=== PATIENT | female | born 1945 | race Caucasian/White ===

== ENCOUNTER 2017-08-24 12:22 | Outpatient (CLI) | payer OTHER | END 2017-08-24 12:33 | disposition home or self-care (01) | LOC: MAMO-SONO 12:22 | DX: Z12.31 Encounter for screening mammogram for malignant neoplasm of breast (principal); Z87.898 Personal history of other specified conditions ==

== ENCOUNTER → 2019-01-14 09:29 | Outpatient (CLI) | payer OTHER | END | disposition home or self-care (01) | LOC: LAB 09:29 | DX: M54.5 Low back pain (principal); Z01.810 Encounter for preprocedural cardiovascular examination; I10 Essential (primary) hypertension; E78.89 Other lipoprotein metabolism disorders; Z12.11 Encounter for screening for malignant neoplasm of colon; Z13.820 Encounter for screening for osteoporosis; Z12.31 Encounter for screening mammogram for malignant neoplasm of breast; E04.1 Nontoxic single thyroid nodule ==

== ENCOUNTER 2019-01-14 11:23 | Outpatient (CLI) | payer OTHER | END 2019-01-14 11:36 | disposition home or self-care (01) | LOC: MAMO-SONO 11:23 | DX: M54.5 Low back pain (principal); I10 Essential (primary) hypertension; Z01.810 Encounter for preprocedural cardiovascular examination; E78.49 Other hyperlipidemia; Z12.11 Encounter for screening for malignant neoplasm of colon; Z13.820 Encounter for screening for osteoporosis; Z12.31 Encounter for screening mammogram for malignant neoplasm of breast ==

== ENCOUNTER 2019-01-16 10:49 | Outpatient (CLI) | payer OTHER | END 2019-01-16 10:52 | disposition home or self-care (01) | LOC: NUCLEAR 10:49 | DX: M81.0 Age-related osteoporosis without current pathological fracture (principal) ==

== ENCOUNTER 2019-01-24 11:12 | Outpatient (CLI) | payer OTHER | END 2019-01-24 17:13 | disposition home or self-care (01) | LOC: TOM 11:12 | DX: K43.2 Incisional hernia without obstruction or gangrene (principal) ==

== ENCOUNTER 2020-01-13 14:09 | Outpatient (CLI) | payer OTHER | END 2020-01-13 14:13 | disposition home or self-care (01) | LOC: RAD 14:09 | PROVIDERS: ATTEND Internal Medicine | DX: I10 Essential (primary) hypertension (principal); I70.0 Atherosclerosis of aorta; D69.49 Other primary thrombocytopenia; Z20.828 Contact with and (suspected) exposure to other viral communicable diseases; M54.5 Low back pain; E78.89 Other lipoprotein metabolism disorders; I73.89 Other specified peripheral vascular diseases; J06.0 Acute laryngopharyngitis ==

== ENCOUNTER 2020-12-15 07:50 | Outpatient (CLI) | payer OTHER | END 2020-12-15 07:51 | disposition home or self-care (01) | LOC: LAB 07:50 | PROVIDERS: ATTEND Internal Medicine | DX: I10 Essential (primary) hypertension (principal); E78.89 Other lipoprotein metabolism disorders; M54.59 Other low back pain; D69.49 Other primary thrombocytopenia; I70.0 Atherosclerosis of aorta; Z13.820 Encounter for screening for osteoporosis; Z12.31 Encounter for screening mammogram for malignant neoplasm of breast ==

== ENCOUNTER 2021-01-13 10:28 | Outpatient (CLI) | payer OTHER | END 2021-01-13 10:32 | disposition home or self-care (01) | LOC: SONOGRAMA 10:28 | PROVIDERS: ATTEND Internal Medicine | DX: N60.11 Diffuse cystic mastopathy of right breast (principal); N60.12 Diffuse cystic mastopathy of left breast; I10 Essential (primary) hypertension; Z13.820 Encounter for screening for osteoporosis; E78.89 Other lipoprotein metabolism disorders; M54.59 Other low back pain; D69.49 Other primary thrombocytopenia; I70.0 Atherosclerosis of aorta; Z12.31 Encounter for screening mammogram for malignant neoplasm of breast ==

== ENCOUNTER 2021-04-16 09:15 | Outpatient (CLI) | payer OTHER | END 2021-04-16 13:21 | disposition home or self-care (01) | LOC: LAB 09:15 | PROVIDERS: ATTEND Internal Medicine | DX: E78.9 Disorder of lipoprotein metabolism, unspecified (principal); I10 Essential (primary) hypertension; M54.50 Low back pain, unspecified; D69.49 Other primary thrombocytopenia; I70.0 Atherosclerosis of aorta; Z13.820 Encounter for screening for osteoporosis; Z12.31 Encounter for screening mammogram for malignant neoplasm of breast ==

== ENCOUNTER 2021-11-11 08:43 | Outpatient (CLI) | payer OTHER | END 2021-11-11 09:39 | disposition home or self-care (01) | LOC: LAB 08:43 | PROVIDERS: ATTEND Internal Medicine | DX: E78.9 Disorder of lipoprotein metabolism, unspecified (principal); I10 Essential (primary) hypertension; M54.50 Low back pain, unspecified; D69.49 Other primary thrombocytopenia; I70.0 Atherosclerosis of aorta; Z13.820 Encounter for screening for osteoporosis; Z12.31 Encounter for screening mammogram for malignant neoplasm of breast ==

== ENCOUNTER 2021-11-11 10:18 | Outpatient (CLI) | payer OTHER | END 2021-11-11 10:19 | disposition home or self-care (01) | LOC: NUCLEAR 10:18 | PROVIDERS: ATTEND Internal Medicine | DX: M54.50 Low back pain, unspecified (principal); D69.49 Other primary thrombocytopenia; I70.0 Atherosclerosis of aorta ==

== ENCOUNTER 2022-06-29 08:10 | Outpatient (CLI) | payer OTHER | END 2022-06-29 08:11 | disposition home or self-care (01) | LOC: LAB 08:10 | PROVIDERS: ATTEND Internal Medicine | DX: E78.9 Disorder of lipoprotein metabolism, unspecified (principal); I10 Essential (primary) hypertension; M54.59 Other low back pain; D69.49 Other primary thrombocytopenia; I70.0 Atherosclerosis of aorta; Z12.31 Encounter for screening mammogram for malignant neoplasm of breast; Z13.820 Encounter for screening for osteoporosis; Z12.11 Encounter for screening for malignant neoplasm of colon ==